=== PATIENT | female | born 2000 | race Caucasian/White ===

== ENCOUNTER 2023-04-04 14:20 | Outpatient (REF) | payer BC, SELFPAY ==
[2023-04-04 14:03] LABS: Source Nasal/Nares
[2023-04-04 15:28] LABS: COVID-19 PCR Negative (Negative)
== END 2023-04-04 14:21 | disposition home or self-care (01) ==
LOC: LBN 14:20
PROVIDERS: Visit Provider Nurse Practitioner Family
DX: Z11.52 Encounter for screening for COVID-19 (principal); J34.89 Other specified disorders of nose and nasal sinuses
CPT/HCPCS: 87635

== ENCOUNTER 2023-09-08 20:39 | Outpatient (REF) | payer BC, SELFPAY ==
[2023-09-08 21:43] LABS: COVID-19 PCR Negative (Negative); Influenza A PCR Positive (Negative); Influenza B PCR Negative (Negative); RSV PCR Negative (Negative)
[2023-09-08 22:05] LABS: Source Nasopharynx
== END 2023-09-08 20:40 | disposition home or self-care (01) ==
LOC: LBN 20:39
PROVIDERS: Visit Provider Physician Assistant Medical
DX: Z20.828 Contact with and (suspected) exposure to other viral communicable diseases (principal)
CPT/HCPCS: 87637